=== PATIENT | male | born 1960 | race Caucasian/White ===

== ENCOUNTER 2020-09-21 11:27 | Outpatient (CLI) | payer OTHER, SELFPAY ==
--- NOTE | ~2020-09-21 | CT_ITS ---
EXAMINATION: CT abdomen pelvis wo con DATE: 09/21/2020 11:45 INDICATION: Mid abdominal pain. TECHNIQUE: Computed tomography (CT) of the abdomen and pelvis was performed without intravenous contr ast. Automated exposure control and iterative reconstruction technique were employed. The dose-length product was 1223.49 mGy-cm. COMPARISON: None. FINDINGS: The visualized portions of the lung bases demonstrate emphysema and mild atelectasis. No pl eural effusion. The heart size is normal. No pericardial effusion. There is diffuse hepatic steatosis . There is mild fat stranding adjacent to the uncinate process of the pancreas, consistent with acute interstitial pancreatitis. The gallbladder, spleen, adrenal glands, and right kidney are normal. The re is a 14 mm mass in left kidney measuring soft tissue attenuation. There are cysts in left kidney m easuring up to 2.2 cm. There is no urolithiasis. There are bilateral inguinal hernias containing fat. There are no dilated loops of bowel. The appendix is normal. There are no pathologically enlarged ly mph nodes. There is no free intraperitoneal fluid. There is mild thoracolumbar spondylosis. IMPRESSION: 1. Acute interstitial pancreatitis. 2. Diffuse hepatic steatosis. 3. 14 mm left kidney mass, which may be a hemorrhagic cyst or less likely a solid neoplasm. Abdomen C T without and with contrast is recommended. 4. Bilateral inguinal hernias containing fat. Reviewed, dictated and finalized at location A. IMPRESSION: 1. Acute interstitial pancreatitis. 2. Diffuse hepatic steatosis. 3. 14 mm left kidney mass, which may be a hemorrhagic cyst or less likely a robbie id neoplasm. Abdomen CT without and with contrast is recommended. 4. Bilateral inguinal hernias containing fat.
[2020-09-21 12:20] LABS: Hematocrit 39.5 % (42.0-52.0); Mean Corpuscular HGB Conc 32.9 g/dl (32-36); Mean Corpuscular Volume 84.9 fl (80-100); Mean Platelet Volume 9.4 fl (7.4-10.4); Platelet Count Result 263 k/mm3 (150-375); Red Blood Count 4.65 M/mm3 (4.6-6.20); Red Cell Distribution Width 14.1 % (11.5-14.5); White Blood Count 10.3 K/mm3 (4.5-10.0)
[2020-09-21 12:23] LABS: Add Urine Microscopic? YES; Appearance Urine Clear (Clear); Bilirubin Urine Negative (Negative); Blood Urine Negative (Negative); Color Urine Yellow (Yellow); Glucose Urine UA 1+ mg/dL (Negative); Ketones Urine Negative (Negative); Leukocyte Esterase Ur Negative LEU/UL (NEGATIVE); Mucus Urine Rare /lpf; Nitrate Urine Negative (Negative); Protein Urine 2+ mg/dL (Negative); RBC Urine 0-2 /hpf (0-2); Specific Grav Ur 1.025 (1.001-1.035); Urobilinogen Urine Negative mg/dL (<2.0)
[2020-09-21 12:30] LABS: Hemoglobin A1C 7.1 % (<5.7)
[2020-09-21 12:32] LABS: Alanine Aminotransferase 27 U/L (4-50); Albumin Level 4.6 g/dL (3.5-5.1); Alkaline Phosphatase 57 U/L (38-126); Amylase 75 U/L (30-110); Anion Gap 11 mmol/L (8-16); Aspartate Amino Transferase 24 U/L (17-59); Bilirubin,Total 0.4 mg/dL (0.2-1.3); Blood Urea Nitrogen 20 mg/dL (9-20); Calcium 9.5 mg/dL (8.4-10.2); Carbon Dioxide 27 mmol/L (22-30); Chloride 101 mmol/L (98-107); Estimated Glomerular Filt Rate > 60; Glucose 159 mg/dL (75-110); Lipase 112 U/L (23-300); Potassium 4.4 mmol/L (3.4-5.0); Sodium 139 mmol/L (137-145)
[2020-09-21 12:49] LABS: Creatinine Urine 139.2 mg/dL
[2020-09-21 13:10] LABS: MALB Creatinine Ratio 192.8 mg/g (0-30); Microalbumin Urine Random 268.4 mg/L (0-16.7)
== END 2020-09-21 11:28 | disposition home or self-care (01) ==
PROVIDERS: PCP Emergency Medicine; Visit Provider Emergency Medicine
DX: R10.9 Unspecified abdominal pain (principal); K76.0 Fatty (change of) liver, not elsewhere classified; K40.90 Unilateral inguinal hernia, without obstruction or gangrene, not specified as recurrent; K85.80 Other acute pancreatitis without necrosis or infection
CPT/HCPCS: 36415; 74176; 80053; 81001; 82043; 82150; 83036; 83690; 85027

== ENCOUNTER 2020-09-21 12:21 | Emergency (ER) | payer OTHER, SELFPAY ==
[2020-09-21 12:36] VITALS: BP 117/73; PULSE 103; RESP 17; TEMP 36.8; O2SAT 96
[2020-09-21 13:21] LABS: Cholesterol 147 mg/dL (0-200); HDL Direct 32 mg/dL; Triglycerides 167 mg/dL (<150)
--- NOTE | 2020-09-21 13:29 | ED.ABDPAIN ---
HPI - Abdominal Pain General Chief Complaint: Abdominal Pain Stated Complaint: pancreatitis Time Seen by Provider: 09/21/20 12:43 Source: patient Mode of arrival: ambulatory Limitations: no limitations History of Present Illness HPI narrative: 59-year-old male Complains of mid abdominal pain which is been present for several weeks, and has been worse for the past 3 days He says the pain generally is relieved by eating something or lying down He has been taking a lot of NSAIDs for pain in his legs and most recently on Sunday his pain worsened after he did that He does not drink, does not smoke, and does not have high cholesterol that he knows of He had outpatient labs and CT scan today Labs were all normal including amylase and lipase CT was consistent with mild interstitial pancreatitis of the uncinate process, and the gallbladder was reported to be normal MD elicited complaint: abdominal pain Onset (ago): week(s) Location: epigastric Related Data Allergies Allergy/AdvReac Type Severity Reaction Status Date / Time No Known Allergies Allergy Verified 09/21/20 12:39 Review of Systems Review of Systems: All systems reviewed & are unremarkable except as noted in HPI and below Constitutional: Constitutional: Denies chills, Denies fatigue, Denies fever(s), Denies headache(s) and Denies weakness Eyes: Eyes: Denies change in vision and Denies other visual disturbances ENT: Denies headache(s), Denies epistaxis, Denies nasal congestion and Denies sore throat Cardiovascular: Cardiovascular: Denies chest pain, Denies leg edema, Denies palpitations and Denies dyspnea Respiratory: Respiratory: Denies cough, Denies dyspnea and Denies wheezing Gastrointestinal: Gastrointestinal: Reports abdominal pain, Denies constipation, Denies diarrhea, Denies nausea and Denies vomiting Genitourinary: Genitourinary: Denies hematuria, Denies dysuria and Denies urinary frequency Musculoskeletal: Musculoskeletal: Denies deformity, Denies arthralgias, Denies joint swelling, Denies muscle weakness and Denies numbness Integumentary/Breasts: Skin/Breast: Denies rash, Denies unusual bruising and Denies wounds Neurologic: Denies Abnormal speech present, Denies headache(s), Denies focal weakness, Denies numbness and Denies weakness Psychiatric: Psychiatric: Reports no additional psychiatric complaints Endocrine: Endocrine: Denies fatigue and Denies palpitations Hematologic/Lymphatic: Hematologic/Lymphatic: Denies easy bleeding and Denies easy bruising Allergic/Immunologic: Allergic/Immunologic: Denies wheezing Exam Const: General: healthy appearing, no acute distress, well developed and awake Nutritional Appearance: well nourished Orientation/consciousness: patient oriented x3 (alert) Limitations: no limitations HENMT: Head: normocephalic and atraumatic Ears: external ears normal General nose exam: No nasal discharge present and no epistaxis Face and sinus: face symmetric Eyes: Conjunctivae: conjunctivae normal Sclera: sclerae normal EOM: EOMs intact bilaterally Neck: Neck: normal visual inspection, supple and no JVD Chest: Chest palpation & inspection: deferred Resp: Effort & Inspection: normal respiratory effort, not labored and not tachypneic Auscultation: other (BS =) Cardio: Heart sounds: no gallops GI: Inspection: normal to inspection and non-distended GI Palp: Yes Soft to palpation and Yes Tenderness to palpation present (GI) (Very mild epigastric tenderness without rebound or guarding) : General: Yes no CVA tenderness Back/Spine/Pelvis: Back: no CVA tenderness Thoracic/Lumbar Spine: thoracic and lumbar spine normal to inspection Skin: General skin exam: normal color and no rashes or lesions noted Neuro: General: patient oriented x3 (alert), moves all extremities and no focal motor deficits Cranial nerves: Yes facial symmetry Speech: normal speech and No Abnormal speech present Motor exam (neuro): Motor abnormali
[2020-09-21 13:32] LABS: LDL Cholesterol Direct 89 mg/dL
[2020-09-21 13:56] VITALS: BP 125/52; PULSE 98; RESP 18; O2SAT 100
== END 2020-09-21 13:57 | disposition home or self-care (01) ==
PROVIDERS: Emergency Provider Emergency Medicine; PCP Emergency Medicine
DX: K85.90 Acute pancreatitis without necrosis or infection, unspecified (principal); K26.9 Duodenal ulcer, unspecified as acute or chronic, without hemorrhage or perforation; T39.395A Adverse effect of other nonsteroidal anti-inflammatory drugs [NSAID], initial encounter
CPT/HCPCS: 36415; 80061; 99283

== ENCOUNTER → 2022-05-10 10:44 | Outpatient (CLI) | payer OTHER, SELFPAY ==
--- NOTE | ~2022-05-10 | XR_ITS ---
XR chest 2V 05/11/2022 10:31 Indication: Difficulty breathing. Smoking history. Procedure: 2 view chest Comparison: Comparison to multiple prior studies sequentially, with oldest reviewed study dated 08/27. Findings: Heart size normal. No focal air space disease, pulmonary edema, pleural effusion or suspect ed pneumothorax. There is a prominent left pericardial fat pad. No acute osseous abnormality. There a re healed left rib fractures. Impression: 1: No acute cardiopulmonary disease. Reviewed, dictated and finalized at location A. Impression: 1: No acute cardiopulmonary disease.
== END ==
PROVIDERS: PCP Emergency Medicine; Visit Provider Emergency Medicine
DX: J44.1 Chronic obstructive pulmonary disease with (acute) exacerbation (principal)
CPT/HCPCS: 71046

== ENCOUNTER → 2023-01-04 12:59 | Outpatient (CLI) | payer SELFPAY ==
--- NOTE | ~2023-01-04 | XR_ITS ---
EXAMINATION: XR chest 2V DATE: 01/04/2023 13:13 INDICATION: COPD exacerbation TECHNIQUE: PA and lateral views of the chest are obtained. COMPARISON: 05/10/2022 FINDINGS: The lungs are free of acute opacities. No pleural effusion or pneumothorax. The cardiomedia stinal silhouette is normal. There is mild thoracic spondylosis. Healed left-sided rib fractures are noted. IMPRESSION: 1. No acute cardiopulmonary abnormality. Reviewed, dictated and finalized at location L. TENDER
== END ==
PROVIDERS: PCP Emergency Medicine; Visit Provider Emergency Medicine
DX: J44.1 Chronic obstructive pulmonary disease with (acute) exacerbation (principal)
CPT/HCPCS: 71046